=== PATIENT | male | born 2005 | race Caucasian/White ===

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

== ENCOUNTER 2025-05-10 18:30 | Emergency (ER) | payer OTHER, SELFPAY ==
--- NOTE | 2025-05-10 18:52 | ED_ITS ---
Discharge Plan Disposition Patient Disposition: Home, Self-Care Condition: Good Prescriptions Prescriptions: New ondansetron 4 mg tablet,disintegrating 4 mg PO DAILY Qty: 10 0RF No Action sertraline 50 mg tablet 50 mg PO DAILY Referrals Follow up/Referrals: Jaqui Donovan APRN [Primary Care Provider, Medical] - See instructions Activity Restrictions/Add. Instructions Additional Instructions/Restrictions: Take Tylenol and ibuprofen in addition to the Zofran as needed for headaches. Try to do brain rest for the next 24 hours including limiting TV and electronics. Return to the emergency department for any worsening neurologic symptoms such as weakness numbness severe headaches or if you have any other acute concerns otherwise follow-up with your primary care provider. Clinical Impressions Clinical Impression: Concussion Instructions Patient Instructions: Concussion Print Language Print Language: Singaporean Discharge ED Provider: Tiffanie Oliveira Adult HPI General Chief complaint: Headache Stated complaint: AO Fall; 05/10/25 Not feeling well Time Seen by Provider: 05/10/25 18:52 History of Present Illness HPI narrative: Patient is a 19-year-old female with no significant past medical history who presents to the emergency department with a headache that started today. Headache was gradual onset not sudden in nature. Patient denies any vision changes. Patient states that headache is bifrontal. Patient denies any other neurologic symptoms such as numbness or weakness. Patient denies any chest pain or shortness of breath. Patient denies any abdominal pain nausea vomiting or diarrhea. Patient did not take any medications prior to arrival. Patient does not take any daily medications. Patient has not had no prior surgeries. Patient has not had any associated trauma. Related Data Home Medications ?Medication ?Instructions ?Recorded ?Confirmed sertraline 50 mg tablet 50 mg PO DAILY 12/20/2310/13 Previous Rx's ?Medication ?Instructions ?Recorded ondansetron 4 mg disintegrating 4 mg PO DAILY #10 tabs 05/10/25 tablet Allergies Allergy/AdvReac Type Severity Reaction Status Date / Time No Known Allergies Allergy Verified 08/26/20 05:49 [facility] Disclaimer: The information contained in this section may have been updated after the patient was seen, as this information can be updated by other users. Social History (Updated 12/20/23 @ 22:53 by JIM Velasco) Smoking Status: Never smoker alcohol intake: never current occupational status: student Travel in the last 8 weeks?: None Have you lived/traveled outside US in past 30 days?: No Contact w/someone who lives/traveled outside US past 30 days?: No Exposure to someone with infectious disease in past 14 days?: No Do you have a fever (greater than 100.4 F or 38 C)?: No Have you tested positive for COVID-19?: No Exposed to someone with COVID-19 in past 14 days?: No Do you have a sore throat?: No Do you have a cough?: No Do you have any weakness?: No Do you have any diarrhea?: No Are you experiencing any unusual bleeding?: No Do you have any muscle aches/pain?: No Do you have any abdominal pain?: No Are you experiencing loss of taste or smell?: No Other Medical History Have you received the Flu Vaccine for this season: No Have you received the Pneumonia Vaccine: No ROS Obtained: Yes All systems reviewed & no additional complaints except as documented and Yes Systems reviewed as appropriate & no additional complaints except as documented Physical Exam General General appearance: alert and in no apparent distress Head Head exam: atraumatic, normocephalic and normal inspection Eye Eye exam: Present normal appearance, PERRL and EOMI; Absent scleral icterus ENT ENT exam: Present normal exam and normal external ear exam Neck Neck exam: Present normal inspection and full ROM Chest Chest inspection: Present normal inspection and symmetric chest wall rise Respiratory Respiratory exam: Present normal lung sounds bilaterally; Absent respiratory distress or wheezes Cardiovascular Cardiovascular exam: Present regular rate, normal rhythm and normal heart sounds Abdominal Exam Abdominal exam: Present soft and distention; Absent tenderness, guarding or rebound Extremities Exam Extremities exam: Present normal inspection and full ROM Back Exam Back exam: Present normal inspection and full ROM Neurological Exam Neurological exam: Present alert, oriented X3, CN II-XII intact, normal gait, motor sensory deficit and reflexes normal Psychiatric Psychiatric exam: Present normal affect and normal mood Skin Skin exam: Present warm and dry Medical Decision Making Medical Records Medical records reviewed: Yes I reviewed the patient's medical records. Screening: Per USPSTF and CDC recommendations, given the prevalence of disease in our region, it is our hospital?s policy to screen for HIV and viral Hepatitis for a ll patients aged 18 and over and those with ongoing risk factors. Martin Inquiry Pt receiving controlled substance: No Martin was queried for this patient: No Vital Signs: 05/10/25 18:59 05/10/25 18:59 05/10/25 19:00 Temperature 98.6 F 98.6 F Temperature Source Oral Pulse Rate 88 103 H Pulse Rate [Left] 88 Respiratory Rate 16 16 Blood Pressure 126/68 128/85 Blood Pressure [Right Arm] 126/68 Blood Pressure Mean [Right Arm] 87 02 Sat by Pulse Oximetry 98 98 97 Oxygen Delivery Method 05/10/25 20:07 Temperature 97.9 F Temperature Source Oral Pulse Rate 74 Pulse Rate [Left] Respiratory Rate 16 Blood Pressure 128/88 Blood Pressure [Right Arm] Blood Pressure Mean [Right Arm] 02 Sat by Pulse Oximetry Oxygen Delivery Method Room Air Lab Data Lab results reviewed: Yes I reviewed the patient's lab results. Orders (Tests/Meds): ED MEDICATIONS Discontinued Medications Generic Name Dose Route Start Last Admin Trade Name Freq PRN Reason Stop Dose Admin Acetaminophen/Butalbital/Caffeine 1 each 05/10/25 19:14 05/10/25 19:23 Butalb/Acetaminophen/Caffeine 50mg/325mg/40mg Tab PO 05/10/25 19:15 1 each ONCE ONE Administration Ibuprofen 800 mg 05/10/25 19:13 05/10/25 19:23 Ibuprofen 800 Mg Tablet PO 05/10/25 19:14 800 mg ONCE ONE Administration Ondansetron HCl 4 mg 05/10/25 19:13 05/10/25 19:23 Ondansetron 4mg Odt SL 05/10/25 19:14 4 mg ONCE ONE Administration Medical Decision Narrative: Patient is an otherwise healthy 19-year-old male who presented to the emergency department with a headache x 1 day. On arrival, patient was hemodynamically stable with unremarkable vital signs. Differential includes but not limited to: Viral syndrome, tension headache, migraine headache, dehydration, amongst others. On exam, patient had a normal neurologic exam. Patient was alert and oriented x 3. Patient had appropriate strength and sensation. Patient had no focal deficits. Therefore patient was treated symptomatically with oral medications with plan for reassessment. Patient was given Fioricet ibuprofen as well as Zofran for a migraine cocktail. On reassessment, patient's headache had completely resolved. Low concern for intracranial process at this time given as noted normal neurologic exam no focal deficits CT scan was not felt to be indicated at this time. Patient was otherwise discharged home in stable condit ion, return precautions were discussed. Critical Care Critical Care Time Critical Care Time: No
[2025-05-10 18:59] VITALS: BP 126/68; PULSE 88; RESP 16; TEMP 37; O2SAT 98; BMI 39.3
[2025-05-10 19:00] VITALS: BP 128/85; PULSE 103; O2SAT 97
--- OUTSIDE RECORDS SUMMARY | 2025-05-10 19:02 | XMS_ITS | Clinical Summary ---
Author Organization [facility] Address [address] [place] [address] Care Team Providers Care Ware Carrier Name Role Phone None, Physician Primary Care Provider Unavailabl e Encounters Date Type Department Care Team Description 04/24/2025 Scanned Document [facility] [address] [place] [address] [address] [place] [address] None, Physician Misc Action Item (SUJIT- REQ. OV NOTE) from Last 3 Months Social History Tobacco Use Types Packs/Day Years Used Date Smoking Tobacco: Never Assessed Sex and Gender Information Value Date Recorded Sex Assigned at Not on file Legal Sex Male 4:08 PM EDT Gender Identity Not on file Sexual Orientation Not on file Plan of Treatment Health Maintenance Due Date Last Done Comments HPV Vaccine (1 - Male 3-dose series) 2020 Annual SDOH Screening 08/20/2024 Depression Screening 08/20/2024 Influenza Vaccine (#1) 2025 06/26/2024, 2021 Tdap/Td Vaccine >11 yo (7 - Td or Tdap) 01/29/2027 01/29/2017, 12/10/2009, 03/08/2007, Additional history exists Haemophilus Influenzae Type B (Hib) Vaccine Completed 11/30/2006, 04/03/2006, 01/29/2006 Pneumococcal Vaccines 6-49 yo Risk Aged Out 12/10/2009, 11/30/2006, 06/18/2006, Additional history exists No longer eligible based on patient's age to complete this topic Polio (IPV) Completed 12/10/2009, 02/18, 04/03/2006, Additional history exists Hepatitis B (HepB) Vaccine Completed 01/29, 12/10/2009, 03/08/2007, Additional history exists Hepatitis A (HepA) Vaccine Completed 03/24/2019, Meningococcal ACWY Completed 07/28/2022, 1 09/28/2021, 01/29/2017 Rotavirus (RV) Vaccine Aged Out No lo nger eligible based on patient's age to complete this topic Insurance [id number] Member Subscriber Plan / Payer (Ef fective 2024-Present) Name:Alejandro Perry Relation to Subscriber:Self Name:Alejandro Perry Payer ID:[id number] Group ID:Not on file Type:Medicaid Address: [address] [address] Care Teams Ware Carrier Relationship Specialty Start Date End Date None, Physician PCP - General 01/19/25
--- OUTSIDE RECORDS SUMMARY | 2025-05-10 19:02 | XMS_ITS | Clinical Summary ---
Author Organization [facility] Address [address] [id number] Care Team Providers Care Stain Wiper Name Role Phone Kaylah Mallory Primary Care Provider [phone] Family History Medical History Relation Name Comments Allergies Brother Tachycardia Father Heart attack Maternal Grandfather Anxiety disorder Mother Conversions - Other Mother Overweig ht Hypertension Mother Relation Name Status Comments Brother Father Maternal Grandfather Mother Social History Tobacco Use Types Packs/Day Years Used Date Smoking Tobacco: Never Assessed Sex and Gender Information Value Date Recorded Sex Assigned at Male 02/15/2024 10:45 AM EDT Legal Sex Male 6:15 PM EDT Gender Identity Not on file Sexual Orientation Not on file Last Filed Vital Signs Vital Sign Reading Time Taken Comments Blood Pressure - - Pulse - - Temperature - - Respiratory Rate - - Oxygen Saturation - - Inhaled Oxygen Concentration - - Weight 60.9 kg (134 lb 4.2 oz) 02/14/20 13 10:27 AM EDT Height 140 cm (4' 7.12 ) 02/13/2013 10: 27 AM EDT Body Mass Index 31.07 02/13/2013 10:27 AM EDT Body Mass Index Percentile 99.99% 02/13 10:27 AM EDT Growth Chart: CDC (Boys, 2-2 0 Years) Plan of Treatment Health Maintenance Due Date Last Done Comments [facility]-Depression Screening 2005 [facility]-/Child/Adol SDOH Screenings 2005 Fluoride Varnish 07/27/2006 HPV Vaccines (1 - Male 3-dose series) 2020 [facility]- SDOH Screenings 11/26/2023 [facility]-Adult SDOH Screenings 11/26/2023 [id number] Vaccine ( - season) 2025 03/27/2021, 03/06/2021 [facility]-Influenza Vaccine (#1) 2025 07/28/2022 [facility]-DTaP,Tdap,and Td Vaccines (7 - Td or Tdap) 01/29/2027 01/29/2017, 12/10/2009, 03/08/2007, Additional history exists [facility]-Zoster Vaccines (1 of 2) 11/26/2055 12/10/2009, 06/07/2007 [facility]-HIB Vaccines Completed 11/30/2006, , 01/29/2006 [facility]-IPV Vaccines Completed 12/10/2009, , 04/03/2006, Additional history exists [facility]-Pneumococcal Vaccine: Pediatrics (0 to 5 Years) and At-Risk Patients (6 to 49 Years) Aged Out 12/10/2009, 11/30/2006, 06/18/2006, Additional history exists No longer eligible based on patient's age to complete this topic [facility]-Varicella Vaccines Completed 12/10/2009, 2006 [facility]-Hepatitis B Vaccines Completed 017, 12/10/2009, 03/08/2007, Additional history exists [facility]-Hepatitis A Vaccines Completed 03/24/2019, 02/17 [facility]-Rotavirus Vaccines Aged Out No lo nger eligible based on patient's age to complete this topic Insurance MEDICAID Care Teams Stain Wiper Relationship Specialty Start Date End Date Kaylah Mallory PA [address] [place] [address] [facility] - General 12/31/20
--- OUTSIDE RECORDS SUMMARY | 2025-05-10 19:02 | XMS_ITS | Encounter Summary ---
Author Organization [facility] Address [address] [place] [address] Care Team Providers Care Gi Asst Name Role Phone None, Physician Primary Care Provider Unavailabl e Reason for Visit * Reason Onset Date Comments Misc Action Item 04/24/2025 SUJIT- REQ. OV NOTE Encounter Details Date Type Department Care Team (Late st Contact Info) Description 04/24/2025 Scanned Document [address] [address] None, Physician Misc Action Item (SUJIT- REQ. OV NOTE) Social History Tobacco Use Types Packs/Day Years Used Date Smoking Tobacco: Never Assessed Sex and Gender Information Value Date Recorded Sex Assigned at Not on file Legal Sex Male 4:08 PM EDT Gender Identity Not on file Sexual Orientation Not on file documented as of this encounter Progress Notes * Brenda Barker LPN - 04/26/2025 4:42 PM EDT Pt has not est care w/Tara. Returned fax [phone] advising. * Liz Barrow - 04/24/2025 6:36 AM EDT Please Process the paperwork accordingly and contact the patient or appropriate libertarian. Paperwork uploaded to media in chart. documented in this encounter Plan of Treatment Not on file documented as of this encounter Visit Diagnoses Not on filedocumented in this encounter Care Teams Gi Asst Relationship Specialty Start Date End Date None, Physician PCP - General 01/19/25 documented as of this encounter
[2025-05-10] MEDS: ONDANSETRON 4MG ODT 4 MG SL (19:23)
[2025-05-10] MEDS: BUTALB/ACETAMINOPHEN/CAFFEINE 50MG/325MG/40MG TAB 1 EACH PO (19:23)
[2025-05-10] MEDS: IBUPROFEN 800 MG TABLET PO (19:23)
[2025-05-10 20:07] VITALS: BP 128/88; PULSE 74; RESP 16; TEMP 36.6; O2SAT 98
== END 2025-05-10 20:12 | disposition home or self-care (01) ==
PROVIDERS: Emergency Provider Student in an Organized Health Care Education/Training Program; PCP Nurse Practitioner Family
DX: G44.89 Other headache syndrome (principal); R53.81 Other malaise
CPT/HCPCS: 99283; 99284; Q0162